=== PATIENT | female | born 2005 | race Caucasian/White ===

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

== ENCOUNTER 2024-06-05 08:31 | Outpatient (CLI) | payer OTHER, SELFPAY ==
[2024-06-05 14:43] LABS: Chlamydia DNA Amplified* NOT DETECTED (No Detected); GC DNA Amplified* NOT DETECTED (No Detected)
== END 2024-06-05 08:32 | disposition home or self-care (01) ==
LOC: NFLDREF 08:31
PROVIDERS: PCP Pediatrics; Visit Provider Registered Nurse
DX: Z11.3 Encounter for screening for infections with a predominantly sexual mode of transmission (principal)
CPT/HCPCS: 87491; 87591

== ENCOUNTER 2024-09-05 20:03 | Emergency (ER) | payer OTHER, SELFPAY ==
[2024-09-05 20:11] VITALS: BP 134/72; PULSE 133; RESP 18; TEMP 37.9; O2SAT 97; BMI 28.8
[2024-09-05 20:21] LABS: Appearance Urine Cloudy (Clear); Bilirubin Urine Negative (Negative); Blood Urine 2+ (Negative); Color Urine Yellow (Yellow); Glucose Urine Negative (Negative); Ketones Urine 4+ (Negative); Leukocyte Esterase Urine Trace (Negative); Nitrite Urine Negative (Negative); Protein Urine 1+ (Negative); Specific Gravity Urine 1.025 (1.000-1.030); Urobilinogen Urine 0.2 (0.2-1.0)
[2024-09-05 20:32] LABS: Bacteria Urine Few; Squamous Epithelial Cell Urine Few (None-Few)
--- NOTE | 2024-09-05 20:50 | ED.GENADULT ---
HPI - General Adult General Chief complaint: Urogenital Problems, Female Stated complaint: reaction to antibiotics Time Seen by Provider: 09/05/24 20:49 History of Present Illness HPI narrative: Continued UTI symptoms. Took two doses of antibiotic and some nausea medicine. Feeling worse. 19-year-old woman presenting to the emergency department with concern of persistent urinary tract infection. Was recently initiated on nitrofurantoin. Still with dysuria. Temperature noted be elevated as well as tachycardic on arrival to the emergency department. Is not having significant abdominal pain. Is not feeling very well. No unusual discharge. Related Data Home Medications ?Medication ?Instructions ?Recorded ?Confirmed fluconazole 150 mg tablet 150 mg PO Q3D 09/05/24 09/05/24 nitrofurantoin 1 cap PO BID 09/05/24 09/05/24 monohydrate/macrocrystals 100 mg capsule Allergies Allergy/AdvReac Type Severity Reaction Status Date / Time No Known Drug Allergies Allergy Verified 06/05/24 07:45 Review of Systems Status of ROS: Reports: 6 or more systems reviewed and unremarkable except as noted in History and below [facility] Medical History Recurrent streptococcal tonsillitis (05/26/12) ?J03.01 - Acute recurrent streptococcal tonsillitis (ICD-10) Frontal sinusitis ?J32.1 - Chronic frontal sinusitis (ICD-10) Exposure to carbon monoxide ?Z77.29 - Contact with and (suspected) exposure to other hazardous substances (ICD-10) Enlarged tonsils (05/26/12) ?J35.1 - Hypertrophy of tonsils (ICD-10) Surgical History History of placement of ear tubes (05/26/12) ?Z96.22 - Myringotomy tube(s) status (ICD-10) Family History Family/Other Uterine cancer Social History Narrative: Lives in [place]. Will be attending [employer] fall 2023. Planning a degree in [employer]. Smoking Status: Never smoker Do you use any of these nicotine containing products: None How often do you have a drink containing alcohol: never AUDIT-C Alcohol total score: 0 Non-prescribed substance use: denies use service: No Exam Narrative: Exam Narrative: Pleasant. Appears like she does not feel very good. Skin is warm and dry. Heart is tachycardic in a regular rhythm. She is breathing easily. Abdomen is soft no peritoneal signs. Well-perfused peripherally. No apparent edema. Const: Vital Signs, click to edit/add: Vital Signs - 24 hr 09/05/24 20:11 Temperature 100.2 F H Pulse Rate [Pulse Oximeter] 133 H Respiratory Rate 18 Blood Pressure [Ri ght Upper Arm] 134/72 Pulse Oximetry 97 Oxygen Delivery Me thod Room Air Documenting provider has reviewed patient's vital signs: yes Course Vital Signs Vital signs: Initial Vital Signs Temperature 100.2 F H 09/05/24 20:11 Temperature Source Temporal Artery Scan 09/05/24 20:11 Pulse Rate 133 H 09/05/24 20:11 Respiratory Rate 18 09/05/24 20:11 Blood Pressure 134/72 09/05/24 20:11 Blood Pressure Mean 92 09/05/24 20:11 Blood Pressure Position Sitting 09/05/24 20:11 Pulse Oximetry 97 09/05/24 20:11 Oxygen Delivery Method Room Air 09/05/24 20:11 Vital Signs Temperature 100.2 F H 09/05/24 20:11 Pulse Rate 133 H 09/05/24 20:11 Respiratory Rate 18 09/05/24 20:11 Blood Pressure 134/72 09/05/24 20:11 Pulse Oximetry 97 09/05/24 20:11 Oxygen Delivery Method Room Air 09/05/24 20:11 Temperature 100.2 F H 09/05/24 20:11 Pulse Rate 109 H 09/05/24 21:25 Respiratory Rate 14 09/05/24 21:25 Blood Pressure 117/80 09/05/24 21:25 Pulse Oximetry 97 09/05/24 20:11 Oxygen Delivery Method Room Air 09/05/24 20:11 Medications Administered Medications: Discontinued Medications Generic Name Dose Route Start Last Admin Trade Name Freq PRN Reason Stop Dose Admin Ceftriaxone Sodium 1 gm 09/05/24 21:07 09/05/24 21:20 Ceftriaxone 1 Gm Vial IM 09/05/24 21:08 1 gm ONCE ONE Administration Medical Decision Making MDM Narrative Medical decision making narrative: Tachycardia and likely elevated temperature is concerning for progression of apparent UTI, including possible pyelonephritis. Does not have any other symptoms to suggest other pathology. Would like to verify though with repeat urinalysis. Not sure that she has failed nitrofurantoin but if urinalysis still is positive would consider changing course and likely given Rocephin here in the emergency department. Urinalysis is indeed positive. Squamous cells are noted. Urine culture pending Rocephin given. See patient discharge plan for further discussion Focus on hydration with water. Can take ibuprofen or acetaminophen. Watch your labs for culture results. We will be culturing your urine here as well and call you if we need to change course. Be seen for worsening fever in 24 hours, marked increase in pain, repeated vomiting, worsening weakness. As discussed can stop nitrofurantoin and start cephalexin as prescribed from [facility]. Given a shot of Rocephin here today. Also Zofran from [facility] for nausea if needed. Medical Records Medical records reviewed: Yes I reviewed the patient's medical records Lab Data Lab results reviewed: Yes I reviewed the patient's lab results Labs: Lab Results 09/05/24 Range/Units Unknown Urine Color Yellow (Yellow) Urine Appearance Cloudy A (Clear) Urine pH 6.0 (5.0-8.5) Ur Specific [place] 1.025 (1.000-1.030) Urine Protein 1+ A (Negative) Urine Glucose (UA) Negative (Negative) Urine Ketones 4+ A (Negative) Urine Blood 2+ A (Negative) Urine Nitrite Negative (Negative) Urine Bilirubin Negative (Negative) Urine Urobilinogen 0.2 (0.2-1.0) Ur Leukocyte Esterase Trace A (Negative) Urine RBC 2-5 A (0-2) Urine WBC 10-25 A (0-5) Ur Squamous Epith Cells Few (None-Few) Urine Bacteria Few A (None) Discharge Plan Discharge Clinical Impression: UTI (urinary tract infection) Patient Disposition: Home, Self-Care Condition: Stable Additional Instructions: Focus on hydration with water. Can take ibuprofen or acetaminophen. Watch your labs for culture results. We will be culturing your urine here as well and call you if we need to change course. Be seen for worsening fever in 24 hours, marked increase in pain, repeated vomiting, worsening weakness. As discussed can stop nitrofurantoin and start cephalexin as prescribed from [facility]. Given a shot of Rocephin here today. Also Zofran from [facility] for nausea if needed. Prescriptions: No Action fluconazole 150 mg tablet 150 mg PO Q3D nitrofurantoin monohyd/m-cryst 100 mg capsule 1 cap PO BID Follow Up/Referrals: Nadine Martínez MD [Primary Care Provider] - Stand Alone Forms: [employer] Info Instructions
[2024-09-05] MEDS: cefTRIAXone 1 GM VIAL IM (21:20)
[2024-09-05 21:25] VITALS: BP 117/80; PULSE 109; RESP 14
== END 2024-09-05 21:26 | disposition home or self-care (01) ==
PROVIDERS: Emergency Provider Family Medicine; PCP Pediatrics
DX: N39.0 Urinary tract infection, site not specified (principal)
CPT/HCPCS: 81001; 87086; 96372; 99284; J0696